=== PATIENT | male | born 1995 | race African-American/Black ===

== ENCOUNTER 2020-09-02 11:07 | Emergency (ER) | payer MEDICAID ==
[~2020-09-02] VITALS: Ht 172.7 cm; Wt 80.0 kg
[2020-09-02] MEDS ORDERED: IBUPROFEN 600MG TABLET PO ONE (12:30)
[2020-09-02] MEDS ORDERED: IBUP-2029 MT (12:36)
[2020-09-02 12:47] VITALS: BP 122/66
== END 2020-09-02 12:49 | disposition home or self-care (01) ==
LOC: ER 11:16
DX: M54.5 Low back pain (principal)
CPT/HCPCS: 99282

== ENCOUNTER 2020-09-07 11:53 | Emergency (ER) | payer MEDICAID ==
[~2020-09-07] VITALS: Ht 172.7 cm; Wt 75.0 kg
[~2020-09-07 11:53] MED LIST: IBUP-2029 MT
[2020-09-07 11:55] VITALS: BP 122/75
[2020-09-07 13:24] LABS: BASOPHILS % 0.2 % (0.0-2.0); EOSINOPHILS % 0.2 % (0.0-5.0); HEMATOCRIT. 49.9 % (42.0-52.0); HEMOGLOBIN. 16.6 g/dL (14.0-18.0); LYMPHOCYTES % 12.5 % (20.0-50.0); MEAN CORPUSCULAR HEMOGLOBIN 28.3 pg (28.0-32.0); MEAN PLATELET VOLUME 9.8 fl (7.4-10.4); MONOCYTES % 5.6 % (2.0-8.0); NEUTROPHILS % 81.5 % (40.0-76.0); PLATELET 307 x1000/uL (130-400); RED BLOOD CELL COUNT 5.86 mill/uL (4.7-6.1); RED CELL DISTRIBUTION WIDTH 13.3 % (11.6-14.6)
[2020-09-07 13:30] LABS: CHLORIDE 104 mEq/L (98-107)
[2020-09-07 14:18] LABS: CLARITY URINE CLOUDY (CLEAR); COLOR URINE YELLOW (YELLOW); KETONES URINE NEGATIVE (NEGATIVE); LEUKOCYTE ESTERASE URINE TRACE (NEGATIVE); NITRITE URINE NEGATIVE (NEGATIVE); OCCULT BLOOD URINE NEGATIVE (NEGATIVE); PROTEIN URINE NEGATIVE (NEGATIVE); SPECIFIC GRAVITY URINE 1.017 (1.005-1.030)
[2020-09-07] MEDS ORDERED: ACET650T37 MT (14:54)
[2020-09-07] MEDS ORDERED: CEPH500T MT (14:54)
== END 2020-09-07 15:20 | disposition home or self-care (01) ==
LOC: ER 11:53
DX: M54.5 Low back pain (principal); R20.2 Paresthesia of skin
CPT/HCPCS: 36415; 72131; 80048; 81003; 85025; 87086; 99284; Z7610